=== PATIENT | female | born 1960 | race Caucasian/White ===

== ENCOUNTER 2016-06-22 16:21 | Inpatient (IN) | payer OTHER ==
[~2016-06-22] VITALS: Ht 180.3 cm; Wt 61.2 kg
[2016-06-22 16:21] VITALS: BP 157/106; PULSE 80; RESP 14; TEMP 97; O2SAT 99
--- NOTE | 2016-06-22 16:21 | NUR ---
Placed in room 03 . Placed on computer customer support specialist, blood pressure machine and pulse oximeter. To gown for exam. Side rails up. Report given to Jayme.
--- NOTE | 2016-06-22 16:22 | NUR ---
EKG completed and handed directly to Dr. Tay
--- NOTE | 2016-06-22 16:30 | NUR ---
ER at bedside examining patient.
[2016-06-22] MEDS ORDERED: ASPIRIN 81 MG TAB.CHEW PO ONE (16:45)
[2016-06-22 16:57] LABS: BASOPHILS # (AUTO) 0.1 K/uL (0.0-0.2); BASOPHILS % (AUTO) 1.3 % (0.0-2.0); EOSINOPHILS # (AUTO) 0.1 K/uL (0.0-0.4); EOSINOPHILS % (AUTO) 2.6 % (0.0-4.0); HEMATOCRIT 42.9 % (36-48); HEMOGLOBIN 14.3 g/dL (12.0-16.0); LYMPHOCYTES # (AUTO) 1.8 K/uL (1.0-5.5); LYMPHOCYTES % (AUTO) 32.1 % (20.5-51.5); MEAN CORPUSCULAR HEMOGLOBIN 30 pg (27-31); MEAN CORPUSCULAR HGB CONC 33 % (32-36); MEAN CORPUSCULAR VOLUME 91 fL (79.0-98.0); MONOCYTES # (AUTO) 0.6 K/uL (0.0-1.0); MONOCYTES % (AUTO) 9.9 % (1.7-9.3); NEUTROPHILS % (AUTO) 54.1 % (40.0-70.0); PLATELET COUNT (AUTO) 134 K/uL (130-430); RED BLOOD CELL COUNT(AUTO) 4.74 MIL/uL (4.2-6.2); RED CELL DISTRIBUTION WIDTH 11.9 % (9.0-15.0); WHITE BLOOD COUNT (AUTO) 5.6 K/uL (4.8-10.8)
[2016-06-22 17:04] LABS: CALCIUM 9.6 mg/dL (8.4-11.0); CREATININE 0.78 mg/dL (0.55-1.30); POTASSIUM 3.8 mmol/L (3.5-5.1)
--- NOTE | 2016-06-22 17:10 | NUR ---
# 20 gauge angiocath placed to left forearm. Use of asceptic technique. Opsite placed over site. Blood return noted. Flushed with 10 cc of normal saline. No evidence of infiltration noted. Patient tolerated well.
[2016-06-22 17:12] LABS: INR 0.9 (0.8-1.2); PROTHROMBIN TIME 10.3 SECS (9.5-12.5)
--- NOTE | 2016-06-22 19:18 | NUR ---
Report given to JNOELLE Spann via SBAR method. Endorsed all care.
--- NOTE | 2016-06-22 19:50 | NUR ---
Patient will be admitted to care of . Admitted to telemetry unit. Will go to room 109C. Belongings list completed. Summary report printed. Report given to Jesse SAL
--- NOTE | 2016-06-22 20:02 | NUR ---
ADMISSION: The patient, JJ BARAHONA, 56 y/o, F admitted by DORINA SMITH MD, was given written information regarding hospital policies, unit procedures and contact persons.
--- NOTE | 2016-06-22 20:02 | NUR ---
Pt awake alert oriented x 4. clear speech. Admission nurse at bedside obtaining pt admission information. pt denied any chest pain at the time. Pt comfortable. Oriented pt call light, bed, and remote. Pt verbalized understanding. call light within reach. will continue to monitor
--- NOTE | 2016-06-22 20:09 | NUR ---
CONSULTATION PAGED REASON FOR CONSULTATION:CHEST PAIN WAS CONSULT CALLED?Y PERSON WHO WAS NOTIFIED:LYNNETTE CONSULTING PHYSICIAN:KELLEE JONES ([facility] OPTOMETRY DOCTOR) RESTRIKE HAMMER OPERATOR SPECIALTY:CARDIO RESTRIKE HAMMER OPERATOR PHONE NUMBER:[phone]
[2016-06-22 20:10] VITALS: BP 136/89; PULSE 71; RESP 16; TEMP 97.9; O2SAT 95
[2016-06-23 01:22] VITALS: BP 135/79; PULSE 65; RESP 18; TEMP 97.6; O2SAT 98
--- NOTE | 2016-06-23 01:32 | NUR ---
Note called Lab to remind regarding lab to be drawn for troponin. charge nurse aware of this was the second reminder
[2016-06-23 04:00] VITALS: BP 137/84; PULSE 67; RESP 18; TEMP 97.8; O2SAT 98
--- NOTE | 2016-06-23 04:00 | NUR ---
Rounds eyes closed. No distress noted. No facial grimacing noted. Comfortable.
--- NOTE | 2016-06-23 07:03 | NUR ---
Closing note pt awake alert. hourly rounds done throughout the shift, comfort needs met. educated to use call light for assistance and pain management education verbally provided. verbalized understanding. will endorsed to the day shift nurse to continue care.
[2016-06-23 07:53] VITALS: BP 123/80; PULSE 62; RESP 18; TEMP 98.6; O2SAT 99
--- NOTE | 2016-06-23 07:54 | NUR ---
Initial Note Received pt in bed, no s/s of distress or sob noted, pt has no c/o pain at this time, pt in stable condition. Bed at lowest position, call light within reach, will continue to monitor pt for any changes. Fall precautions in place. Pt has no c/o chest pain at this time.
--- NOTE | 2016-06-23 10:20 | NUR ---
ROUNDS PT IN BED, NO S/S OF DISTRESS OR SOB NOTED, PT HAS NO C/O PAIN AT THIS TIME, PT IN STABLE CONDITION, PT RESTING COMFORTABLY, WILL CONTINUE TO MONITOR PT FOR ANY CHANGES.
[2016-06-23] MEDS ORDERED: METOPROLOL SUCCINATE 25 MG TAB.SR.24H (TOPROL XL) PO ONE (11:45)
[2016-06-23] MEDS ORDERED: OMEPRAZOLE 20 MG CAPSULE.DR (PriLOSEC) PO ONE (11:45)
[2016-06-23 12:35] VITALS: BP 122/72; PULSE 68; RESP 17; TEMP 98.6; O2SAT 98
[2016-06-23 12:58] VITALS: BP 120/78; PULSE 64; RESP 18; TEMP 98.6; O2SAT 99
--- NOTE | 2016-06-23 13:15 | NUR ---
D/C Patient Patient given medication reconciliation form and D/C instructions. Exit Care provided. Patient verbalized understanding. MD discussed with patient the results and treatment provided. Ambulatory with steady gait for discharge to home. Patient in stable condition, ID band removed. IV catheter removed, intact and dressing applied, no active bleeding.Patient educated on pain management. All belongings sent with patient.Discussed with pt to follow up with primary care provider and policy services representative in one week, pt verbalized understanding.
[2016-06-24] MEDS ORDERED: METOPROLOL SUCCINATE 25 MG TAB.SR.24H (TOPROL XL) PO SCH (09:00)
[2016-06-24] MEDS ORDERED: OMEPRAZOLE 20 MG CAPSULE.DR (PriLOSEC) PO SCH (09:00)
--- NOTE | 2016-06-28 10:58 | NUR ---
Discharge Follow Up Phone Calls: [facility] called and attempted to speak with pt ([phone]) on 06/26/16, 06/27/16, and 06/28/16. At each attempt there was no answer and no voice mail. [facility] unable to follow up with pt at this time.
== END 2016-06-23 13:15 | disposition home or self-care (01) | DRG 392 ==
LOC: SED 16:21 → STU 18:46
PROVIDERS: ADMIT Internal Medicine; ATTEND Internal Medicine
DX: K21.9 Gastro-esophageal reflux disease without esophagitis (principal); F41.9 Anxiety disorder, unspecified; I10 Essential (primary) hypertension; I49.3 Ventricular premature depolarization; Z80.1 Family history of malignant neoplasm of trachea, bronchus and lung; Z88.5 Allergy status to narcotic agent; Z90.49 Acquired absence of other specified parts of digestive tract
CPT/HCPCS: 36415; 71010; 80048; 83880; 84484; 85025; 85610-TC; 85730-TC; 87081; 93005; 99285; G0378

== ENCOUNTER 2022-09-18 20:30 | Emergency (ER) | payer BC, OTHER ==
[~2022-09-18] VITALS: Ht 180.3 cm; Wt 65.8 kg
[2022-09-18 20:44] VITALS: BP_SYST 165
[2022-09-18 22:06] LABS: BASOPHILS # (AUTO) 0.1 K/uL (0.0-0.2); EOSINOPHILS # (AUTO) 0.2 K/uL (0.0-0.4); EOSINOPHILS % (AUTO) 3.5 % (0.0-4.0); HEMATOCRIT 42.4 % (36-48); LYMPHOCYTES # (AUTO) 1.7 K/uL (1.0-5.5); LYMPHOCYTES % (AUTO) 31.5 % (20.5-51.5); MEAN CORPUSCULAR HEMOGLOBIN 31 pg (27-31); MEAN CORPUSCULAR HGB CONC 33 % (32-36); MEAN CORPUSCULAR VOLUME 92 fL (79.0-98.0); MONOCYTES # (AUTO) 0.7 K/uL (0.0-1.0); MONOCYTES % (AUTO) 12.9 % (1.7-9.3); NEUTROPHILS # (AUTO) 2.7 K/uL (1.8-7.7); NEUTROPHILS % (AUTO) 51.1 % (40.0-70.0); RED BLOOD CELL COUNT(AUTO) 4.59 MIL/uL (4.2-6.2); RED CELL DISTRIBUTION WIDTH 13.1 % (9.0-15.0); WHITE BLOOD COUNT (AUTO) 5.3 K/uL (4.8-10.8)
[2022-09-18 22:13] LABS: PLATELET COUNT (AUTO) 128 K/uL (130-430)
[2022-09-18 22:22] LABS: ANION GAP 4 (5-15); CALCIUM 8.7 mg/dL (8.4-11.0); CHLORIDE 104 mmol/L (98-107); CREATININE 0.75 mg/dL (0.55-1.30); GFR AFRICAN AMERICAN 101 mL/min (>90); GLUCOSE 102 mg/dL (70-99); UREA NITROGEN, BLOOD 17 mg/dL (8-21)
[2022-09-18 22:27] LABS: ALANINE AMINOTRANSFERASE 44 U/L (12-78); ASPARTATE AMINOTRANSFERASE 30 U/L (10-37); TOTAL BILIRUBIN 0.3 mg/dL (0.0-1.0)
[2022-09-19 00:17] VITALS: BP_SYST 132
== END 2022-09-19 00:18 | disposition home or self-care (01) ==
LOC: SED 20:30
DX: M54.6 Pain in thoracic spine (principal); R07.81 Pleurodynia; I10 Essential (primary) hypertension; Z88.5 Allergy status to narcotic agent; Z88.8 Allergy status to other drugs, medicaments and biological substances
CPT/HCPCS: 36415; 71045; 80053; 83880; 84484; 85025; 93005; 99285

== ENCOUNTER 2022-11-01 17:53 | Emergency (ER) | payer SELFPAY ==
[~2022-11-01] VITALS: Ht 180.3 cm; Wt 65.8 kg
[2022-11-01 17:53] VITALS: BP_SYST 145
[2022-11-01] MEDS ORDERED: KETOROLAC TROMETHAMINE 60 MG/2 ML VIAL IM ONE (18:15)
[2022-11-01] MEDS ORDERED: MORPHINE 4 MG INJ. 4 MG/ML VIAL IVP ONE (18:15)
[2022-11-01 18:59] VITALS: BP_SYST 143
[2022-11-01] MEDS ORDERED: HYDR-3917 PO (19:10)
[2022-11-01] MEDS ORDERED: IBUP-1969 PO (19:10)
== END 2022-11-01 20:22 | disposition home or self-care (01) ==
LOC: SED 17:53
DX: S70.02XA Contusion of left hip, initial encounter (principal); E78.5 Hyperlipidemia, unspecified; W19.XXXA Unspecified fall, initial encounter; Y93.89 Activity, other specified; Y92.89 Other specified places as the place of occurrence of the external cause; Y99.8 Other external cause status; I10 Essential (primary) hypertension; Z88.1 Allergy status to other antibiotic agents; Z88.5 Allergy status to narcotic agent; Z79.899 Other long term (current) drug therapy
CPT/HCPCS: 99283; 73502; 96372; J1885